=== PATIENT | female | born 1990 | race Two or more races ===

== ENCOUNTER 2020-08-11 07:40 | Emergency (ER) | payer OTHER, SELFPAY ==
--- NOTE | ~2020-08-11 | US_ITS ---
EXAMINATION: US OB <=14 wk fetus w TV EXAM DATE: 08/11/2020 09:08 INDICATION: vaginal bleeding and cramping Vaginal bleeding and cramping . 1st trimester. TECHNIQUE: Pelvic obstetrical transabdominal sonogram was performed by a technologist. There are mu ltiple grayscale and Doppler images available for interpretation. There are no earlier studies of th is gestation for comparison. FINDINGS: The uterus is retroverted, measures 6.2 x 5.4 x 4.2 cm, with significantly thickened hetero geneous endometrium at 23 mm. No intrauterine gestation sac identified. The ovaries are both identifi ed, morphologically normal and demonstrate low resistance Doppler flow. Early intrauterine or recent spontaneous are common causes of elevated beta hCG in absence of intrauterine confirmation. Ultrasound can sometimes identify, but never exclud e an ectopic in the setting of positive beta hCG. Follow up as warranted clinically with s erial beta hCG levels or ultrasound. IMPRESSION: Thickened endometrium, could be decidual reaction but no intrauterine or extrauterine pr egnancy identified. Follow up as warranted clinically with serial beta hCG levels or ultrasound. Reviewed, dictated and finalized at location A. IMPRESSION: Thickened endometrium, could be decidual reaction but no intrauter ine or extrauterine identified. Follow up as warranted clinically wit h serial beta hCG levels or ultrasound.
[2020-08-11 07:52] VITALS: BP 117/77; PULSE 97; RESP 18; TEMP 37.1; O2SAT 100
--- NOTE | 2020-08-11 07:58 | ED.PREGNANCY ---
HPI - General Chief complaint: SPECIALTY MOLDER Stated complaint: /bleeding Time Seen by Provider: 08/11/20 07:44 Source: patient and RN notes reviewed Mode of arrival: ambulatory Limitations: no limitations History of Present Illness HPI Narrative: This is a 30 year old female approximately 5 weeks GA who presents for evaluation of vaginal bleeding and lower abdominal cramping. She started having vaginal bleeding 4 days ago. It started as brown spotting and she developed worsening bleeding yesterday. She states she is passing clots when she urinates. She also reports lower abdominal cramping. She reports mild lightheadedness because she did not sleep well last night due to her cramping. LMP 07/02/20. Her OBGYN is located in [place] at [facility]. She spoke to her LOCK OPERATOR yesterday and she has an appointment on Thursday. Related Data Allergies Allergy/AdvReac Type Severity Reaction Status Date / Time No Known Allergies Allergy Verified 08/11/20 08:06 Review of Systems Review of Systems: All systems reviewed & are unremarkable except as noted in HPI and below PMFSH Past Medical History Medical History (Updated 08/11/20 @ 10:05 by Shoshana Churchill MD) Patient denies medical problems Surgical History Surgical History (Updated 08/11/20 @ 08:00 by Shoshana Churchill MD) No pertinent past surgical history Social History Social History (Updated 08/11/20 @ 08:01 by Shoshana Churchill MD) Smoking status: Never smoker Exam Const: General: no acute distress and alert Orientation/consciousness: patient oriented x3 Neck: Neck: no lymphadenopathy Resp: Effort & Inspection: normal respiratory effort and no retractions Auscultation: clear to auscultation bilaterally Cardio: Rate: regular rate Rhythm: regular rhythm Heart sounds: no murmurs GI: GI Palp: Yes Soft to palpation, Yes Tenderness to palpation present (GI) (suprapubic) and Yes Guarding due to palpation present (GI) : Speculum Exam - Vagina: vaginal bleeding (mild dark blood in vault, no clots, no tissues) Speculum Exam - Cervix: Cervical os closed Skin: General skin exam: normal color Rashes: no rashes Neuro: General: patient oriented x3, moves all extremities and CN's II-XI intact bilaterally Gait exam (Neuro): Normal gait present Psych: Mental Status: mental status grossly normal Affect: normal affect Course Reevaluation(s) Reevaluation #1: I discussed with patient that we attempted to call her LOCK OPERATOR but they did not have an exchange. This appears to be Family medicine clinic and not OB so I recommended that she follow up with our OB on Thursday Date: 08/11/20 Time: 10:00 Consultations Consultation #1: I spoke with Dr. Howell our cardiac surgeon OBGYN, He states to have patient follow up in their clinic on Thursday for them to do blood work and monitor this . Date: 08/11/20 Time: 09:56 Vital Signs Vital signs: Vital Signs Temperature 98.8 F 08/11/20 07:52 Pulse Rate 97 08/11/20 07:52 Respiratory Rate 18 08/11/20 07:52 Blood Pressure 117/77 08/11/20 07:52 Pulse Oximetry 100 08/11/20 07:52 Temperature 98.8 F 08/11/20 07:52 Pulse Rate 91 08/11/20 09:19 Respiratory Rate 18 08/11/20 07:52 Blood Pressure 105/75 08/11/20 09:19 Pulse Oximetry 100 08/11/20 07:52 MDM - OB/Uterine Contractions Lab Data Attestation: I reviewed the patient's lab results. Result diagrams: 08/11/20 08:02 Labs: Lab Results 08/11/20 08/11/20 08/11/20 Range/Units 08:02 08:02 08:03 WBC 10.5 H (4.5-10.0) K/mm3 RBC 4.68 (4.2-5.4) M/mm3 Hgb 14.3 (12.0-15.0) g/dL Hct 42.7 (37.0-47.0) % MCV 91.2 (80-100) fl MCH 30.6 (26-34) pg MCHC 33.5 (32-36) g/dl RDW 12.7 (11.5-14.5) % Plt Count 312 (150-375) k/mm3 MPV 9.0 (7.4-10.4) fl Immature Gran % (Auto) 0.2 (0-0.5) % Neut % (Auto) 69.5 (45.5-73.1) % Lymph % (Auto) 23.4 (18.3-44.2) % Braxton % (Aut
[2020-08-11 08:21] LABS: Basophils Percent Auto 0.4 % (0.2-1.2); Eosinophils Absolute Auto 0.1 K/mm3 (0-0.3); Hematocrit 42.7 % (37.0-47.0); Hemoglobin 14.3 g/dL (12.0-15.0); Immature Granulocyte Absolute 0.02 K/mm3 (0.00-0.031); Immature Granulocyte Percent A 0.2 % (0-0.5); Lymphocytes Absolute Auto 2.45 K/mm3 (0.9-3.2); Lymphocytes Percent Auto 23.4 % (18.3-44.2); Mean Corpuscular HGB Conc 33.5 g/dl (32-36); Mean Corpuscular Hemoglobin 30.6 pg (26-34); Mean Corpuscular Volume 91.2 fl (80-100); Monocytes Absolute Auto 0.6 K/mm3 (0.1-0.6); Monocytes Percent Auto 5.5 % (2.6-8.5); Neutrophils Absolute Auto 7.3 K/mm3 (1.3-6.7); Neutrophils Percent Auto 69.5 % (45.5-73.1); Platelet Count Result 312 k/mm3 (150-375); Red Blood Count 4.68 M/mm3 (4.2-5.4); Red Cell Distribution Width 12.7 % (11.5-14.5); White Blood Count 10.5 K/mm3 (4.5-10.0)
[2020-08-11 09:17] VITALS: BP 95/57; PULSE 76
[2020-08-11 09:18] VITALS: BP 99/64; PULSE 76
[2020-08-11 09:19] VITALS: BP 105/75; PULSE 91
== END 2020-08-11 10:26 | disposition home or self-care (01) ==
PROVIDERS: Emergency Provider General Practice
DX: O20.9 Hemorrhage in early pregnancy, unspecified (principal); Z3A.01 Less than 8 weeks gestation of pregnancy
CPT/HCPCS: 36415; 76801; 76817; 84702; 85025; 85461; 99284

== ENCOUNTER 2021-10-18 17:31 | Emergency (ER) | payer OTHER, SELFPAY ==
[2021-10-18 17:32] VITALS: BP 102/63; PULSE 93; RESP 16; TEMP 36.4; O2SAT 100
--- NOTE | 2021-10-18 18:03 | ED.URI ---
HPI - URI/Sore Throat General Chief Complaint: Upper Respiratory Infection Stated Complaint: cough, bodyaches Time Seen by Provider: 10/18/21 17:40 Source: patient Mode of arrival: ambulatory Limitations: no limitations History of Present Illness HPI Narrative: This is a 31 year old female that presents to the ER for cold symptoms. Present over the last couple of days. Reports low grade fevers, cough, sore throat and myalgias. Reports she is currently 24 weeks . Has had routine pre- care. Has no concerns. Is feeling baby move. She has been taking Tylenol and Claritin for her symptoms. Denies shortness of breath. Related Data Allergies Allergy/AdvReac Type Severity Reaction Status Date / Time No Known Allergies Allergy Verified 10/18/21 17:36 Review of Systems Review of Systems: CONSTITUTIONAL: Reports fever ENT: Reports congestion, sore throat CARDIOVASCULAR: Denies edema. RESPIRATORY: Reports cough. Denies dyspnea. All systems reviewed & are unremarkable except as noted in HPI and below PMFSH Past Medical History Medical History (Updated 10/18/21 @ 19:05 by Loretta Ballard PA-C) Patient denies medical problems Surgical History Surgical History (Updated 08/11/20 @ 08:00 by Shoshana Churchill MD) No pertinent past surgical history Social History Social History (Updated 08/11/20 @ 08:01 by Shoshana Churchill MD) Smoking status: Never smoker Exam Narrative: GENERAL: Well-appearing, well-nourished, and in no acute distress. HEAD: Normocephalic, atraumatic. EYES: EOMI. ENT: Nares clear, no rhinorrhea or epistaxis. Mucous membranes moist. Oropharynx without tonsillar hypertrophy exudate or other lesions. Bilateral TMs pearly jara non-bulging NECK: Supple. No adenopathy or masses. CHEST: Clear to auscultation. No respiratory distress. No wheezes rales or rhonchi HEART: Regular rate and rhythm. No murmur heard. Normal peripheral pulses. ABDOMEN: Gravid EXTREMITIES: Normal range of motion. No edema. SKIN: Warm, dry, no rash. NEURO: No focal deficits. Alert and oriented x3. PSYCH: Normal mood and affect Course Vital Signs Vital signs: Vital Signs Temperature 97.5 F L 10/18/21 17:32 Pulse Rate 93 10/18/21 17:32 Respiratory Rate 16 10/18/21 17:32 Blood Pressure 102/63 10/18/21 17:32 Pulse Oximetry 100 10/18/21 17:32 Oxygen Delivery Room Air 10/18/21 17:32 Temperature 97.5 F L 10/18/21 17:32 Pulse Rate 93 10/18/21 17:32 Respiratory Rate 16 10/18/21 17:32 Blood Pressure 102/63 10/18/21 17:32 Pulse Oximetry 100 10/18/21 17:32 Oxygen Delivery Room Air 10/18/21 17:32 MDM - URI/Sore Throat MDM Narrative Medical decision making narrative: Patient presents to the emergency department for cold symptoms present over the last couple of days. She is afebrile and nontoxic-appearing. Oxygen saturation has remained normal on room air. Lungs are clear on exam. Patient is influenza B positive. Patient is currently 24 weeks . Has no related concerns. Normal heart tones noted. Reports she is feeling baby move. Patient will be given prescription for Tamiflu. She was instructed on other supportive care of viral infection in . She was instructed to follow-up with her OB. She was given warnings to return to the ER Lab Data Attestation: I reviewed the patient's lab results. Labs: Lab Results 10/18/21 Range/Units 17:51 Influenza A (RT-PCR) Negative (Negative) Influenza B (RT-PCR) Positive A (Negative) SARS-CoV-2 RNA (RT-PCR) Negative Critical Care Time Critical Care Time Critical Care Time: No Discharge Plan Discharge Clinical Impression: Influenza B Patient Disposition: Home, Self-Care Condition: Stable Instructions: Influenza (ED) Additional Instructions: Return to the emergency department for worsening symptoms, or any other concerns Remain well-hydrated, get plenty o
[2021-10-18 18:35] LABS: Influenza A QL RT-PCR Negative (Negative); Influenza B QL RT-PCR Positive (Negative); SARS-CoV-2 RNA PCR Negative
[2021-10-18 19:18] VITALS: BP 108/68; PULSE 90; RESP 16; TEMP 36.5; O2SAT 100
== END 2021-10-18 19:19 | disposition home or self-care (01) ==
PROVIDERS: Physician Assistant; Emergency Provider General Practice
DX: O99.512 Diseases of the respiratory system complicating pregnancy, second trimester (principal); J10.1 Influenza due to other identified influenza virus with other respiratory manifestations; Z20.822 Contact with and (suspected) exposure to COVID-19; Z3A.24 24 weeks gestation of pregnancy
CPT/HCPCS: 87502; 99283; C9803; U0003; U0005

== ENCOUNTER 2024-11-15 15:54 | Outpatient (CLI) | payer OTHER, SELFPAY ==
[2024-11-15 16:24] LABS: Hematocrit 38.3 % (37.0-47.0); Hemoglobin 12.8 g/dL (12.0-15.0); Immature Granulocyte Percent A 1.2 % (0-0.5); Lymphocytes Absolute Auto 1.62 K/mm3 (0.9-3.2); Mean Corpuscular HGB Conc 33.4 g/dl (32-36); Mean Corpuscular Hemoglobin 31.4 pg (26-34); Mean Corpuscular Volume 94.1 fl (80-100); Nucleated Red Blood Cells Absolute Auto 0.000 K/mm3 (0.0-0.012); Nucleated Red Blood Cells Perc 0.0 % (0.0-0.2); Platelet Count Result 201 k/mm3 (150-375); Red Blood Count 4.07 M/mm3 (4.2-5.4); White Blood Count 9.3 K/mm3 (4.5-10.0)
--- OUTSIDE RECORDS SUMMARY | 2024-11-15 17:03 | XMS_ITS | Clinical Summary ---
Author Organization [facility] [place] [facility] Address [facility] [place] [address] Care Team Providers Care Poultry Killer Name Role Phone Bere Hull MD Primary Care Provider [phone] Allergies No known active allergies Medications vitamin (VINATE M) 27-1 MG Tab tablet Take 1 tablet by mouth daily. Active famotidine (PEPCID) 20 MG tabletIndication s:Belching,Gastr oesophageal reflux disease without esophagitis Take 1 tablet (20 mg total) by mouth 2 (two) times daily. 60 tablet 05/22/2022 Active Active Problems Problem Noted Date Diagnosed Date Endometritis 02/01/2022 Overview (02/01/2022): Tmax 102.8F s/p 24hrs of Unasyn Arrest of dilation, delivere d, current hospitalization ([facility]) 01/29/2022 Overview (01/29/2022): Arrest at 8 cm heart rate non-reassur ing affecting management of mother ([facility]) 01/29/2022 Overview (01/29/2022): NRFHT, recurrent late decels delivery delivered ([facility]) 01/29/2022 Overview (01/29/2022): LTCD, 2 layer closure, QBL 724cc atony Viral URI with cough 01/29/2022 Maternal varicella, non-immune ([facility]) 022 (HHS/HCC) 01/28/2022 Family History Medical History Relation Comments Hypertension Father Diabetes Mother Relation Status Comments Father Mother Social History Tobacco Use Types Packs/Day Years Used Date Smoking Tobacco: Never Passive Smoke Exposure: Never Smokeless Tobacco: Never Tobacco Cessation:Counseling Given: No Alcohol Use Standard Drinks/Week Comments Never 0 (1 standard drink = 0.6 oz pur e alcohol) PHQ-2 Answer Date Recorded Patient Health Questionnaire-2 Score 0 05/22/2022 Depression Answer Date Recor ded Last EPDS Total Score 3 01/31/2022 Last EPDS Self Harm Result Often 01/31 Comments No Sex and Gender Information Value Date Recorded Sex Assigned at Female 01/28/2022 12:43 PM CUSTOMER DEVELOPMENT REPRESENTATIVE Legal Sex Female 2:31 PM CDT Gender Identity Female 01/28/2022 12:43 PM CUSTOMER DEVELOPMENT REPRESENTATIVE Sexual Orientation Straight 01/28/2022 12 :43 PM CUSTOMER DEVELOPMENT REPRESENTATIVE Last Filed Vital Signs Vital Sign Reading Time Taken Comments Blood Pressure 91/70 05/22/2022 7:13 AM CDT Pulse 80 05/22/2022 7:13 AM CDT Temperature 36.8 C (98.2 F) 05/22/2022 7:13 AM CDT Respiratory Rate 16 05/22/2022 7:13 AM CDT Oxygen Saturation 100% 05/22/2022 7:13 AM CDT Inhaled Oxygen Concentration - - Weight 65.3 kg (144 lb) 05/22/2022 7:13 AM CDT Height 160 cm (5' 3) 05/22/2022 7:13 AM CDT Body Mass Index 25.51 05/22/2022 7:13 AM CDT Plan of Treatment Health Maintenance Due Date Last Done Comments Cervical Cancer Screening Pa p Smear (Age 30 to 64) Every 3 Years 1989 Annual Physical 1992 DTaP, Tdap and Td Vaccines ( 1 - Tdap) 2008 Hepatitis B Vaccines (1 of 3 - 19+ 3-dose series) 2008 HPV Vaccines (1 - 3-dose SCD M series) 2016 Cervical Cancer Screening Pa p with HPV Testing (Age 30 to 64) Every 5 Years 08/07/2019 Cervical Cancer Screening with HPV 08/07/2019 COVID-19 Vaccine (2023-2 5 season) 2024 Hepatitis C Completed 05/26/2021 Meningococcal B Vaccine Aged Out No l onger eligible based on patient's age to complete this topic Meningococcal Vaccine Aged Out No melva suki eligible based on patient's age to complete this topic Pneumococcal Vaccine: Pediat rics (0 to 5 Years) and At-Risk Patients (6 to 49 Years) Aged Out No longer eligi ble based on patient's age to complete this topic RSV Immunizations Under 20 Months Aged Out No longer eligible based on patient's age to complete this topic Procedures Procedure Name Priority Date/Time Associated Diagnosis Comments HEPATITIS C ANTIBODY Routine 05/26/2021 from Last 3 Months or Most Recently Relevant to Health Maintenance Results * HEPATITIS C ANTIBODY (05/26/2021) HEPATITIS C AB Negative us Default History Genericprovider LABORATORY Final Result from Last 3 Months or Most Recently Relevant to Health Maintenance Insurance [employer] Advance Directives * Full Code (Latest Code Status on File) Date Activated Date Inactivated Comments 01/28/2022 10:56 AM 02/01/2022 4:23 PM Care Teams Poultry Killer Relationship Specialty Start Date End Date Bere Hull MD [facility] [facility] [address] [place] [address] PCP - General INTERNAL MEDICINE 08/11/22
--- OUTSIDE RECORDS SUMMARY | 2024-11-15 17:03 | XMS_ITS | Encounter Summary ---
Author Organization [facility] [place] Address [address] [place] [address] Care Team Providers Care Trestle Builder Name Role Phone None, Provider Primary Care Provider Kathryn Beaulieu MD Primary Care Pr ovider Unavailable Bere Hull MD Primary Care Provider [phone] Encounter Details Date Type Department Care Team (Late st Contact Info) Description 09/25/2021 Community Orders [facility] EPICCARE LINK Charlene Sheikh DO Social History Tobacco Use Types Packs/Day Years Used Date Smoking Tobacco: Never Assessed Comments Unknown Sex and Gender Information Value Date Recorded Sex Assigned at Female 01/28/2022 12:43 PM CASKET ASSEMBLER Legal Sex Female 2:31 PM CDT Gender Identity Female 01/28/2022 12:43 PM CASKET ASSEMBLER Sexual Orientation Straight 01/28/2022 12 :43 PM CASKET ASSEMBLER COVID-19 Exposure Response Date Recorded In the last 10 days, have yo u been in contact with someone who was confirmed or suspected to have Coronavirus/COVID-19? No / Unsure 09/25/2021 4:14 PM CDT documented as of this encounter Plan of Treatment Not on file documented as of this encounter Results * CULTURE URINE (09/25/2021 4:21 PM CDT) SPEC DESCRIPTION URINE CLEAN CATCH 09/25/2021 4:21 PM CDT [facility] SPECIAL REQUESTS NO SPECIAL REQUEST 09/25/2021 4:21 PM CDT [facility] CULTURE RESULT NO GROWTH 2 DAYS 09/27/2021 9:07 AM CDT [facility] URINE SPECIMEN OBTAINED BY CLEAN CATCH PROCEDURE / Unknown 09/25/2021 4:21 PM CDT 09/25/2021 4:23 PM CDT Charlene Sheikh DO MICROBIOLOGY - GENERAL ORDERA BLES Final Result [facility] [address] [place] [address], [place] [phone] * URINALYSIS (09/25/2021 4:21 PM CDT) SPECIMEN TYPE URINE CLEAN CATCH 09/25/2021 4:21 PM CDT [facility] COLOR (U) COLORLESS 09/25/2021 4:50 PM CDT [facility] TRANSPARENCY CLEAR 09/25/2021 4:50 PM CDT [facility] SPECIFIC GRAVITY (U) 1.004 1.001 - 1.030 09/25/2021 4:50 PM CDT [facility] U PH 6.5 5.0 - 9.0 09/25/2021 4:50 PM CDT [facility] LEUKOCYTES (U) NEGATIVE NEGATIVE 09/25/2021 4:50 PM CDT [facility] NITRITES NEGATIVE NEGATIVE 09/25/2021 4:50 PM CDT [facility] PROTEIN (U) NEGATIVE <30 MG/DL 09/25/2021 4:50 PM CDT [facility] URINE GLUCOSE NORMAL NORMAL MG/DL 09/25/2021 4:50 PM CDT [facility] KETONES MG/DL (U) NEGATIVE NEGATIVE MG/DL 09/25/2021 4:50 PM CDT [facility] UROBILINOGEN NORMAL NORMAL MG/DL 09/25/2021 4:50 PM CDT [facility] BILIRUBIN (U) NEGATIVE NEGATIVE MG/DL 09/25/2021 4:50 PM CDT [facility] BLOOD (U) NEGATIVE NEGATIVE 09/25/2021 4:50 PM CDT [facility] URINE SPECIMEN OBTAINED BY CLEAN CATCH PROCEDURE / Unknown 09/25/2021 4:21 PM CDT us Charlene Sheikh DO URINE ORDERABLES Final Result [facility] [address] [place] [address], [place] [phone] documented in this encounter Visit Diagnoses Diagnosis Abdominal pain affecting (HHS/HCC)- Primary documented in this encounter Additional Health Concerns Infection Onset Date Last Indicated Resolved Time COVID-19 Rule Out 01/28/2022 01/28/2022 01/28/2022 2:51 PM CASKET ASSEMBLER documented as of this encounter Care Teams Trestle Builder Relationship Specialty Start Date End Date None, Provider, PCP - General UNKNOWN PHYSICIAN SPECIALTY 01/28/22 05/21/22 Kathryn Arambula MD PCP - General FAMILY PRACTICE 05/22/22 08/10/22 Bere Hull MD [address] [address] PCP - General INTERNAL MEDICINE 08/11/22 documented as of this encounter
[2024-11-15 17:35] LABS: Syphilis IgG/IgM Antibody Non-Reactive (Nonreactive)
== END 2024-11-15 15:55 | disposition home or self-care (01) ==
PROVIDERS: PCP Emergency Medicine; Visit Provider Obstetrics & Gynecology
DX: Z01.818 Encounter for other preprocedural examination (principal); I10 Essential (primary) hypertension
CPT/HCPCS: 36415; 85025; 86593; 86850; 86900; 86901

== ENCOUNTER 2024-11-16 05:26 | Inpatient (IN) | payer OTHER, SELFPAY ==
[2024-11-16] VITALS (54 sets, daily range): BP systolic 81–105; BP diastolic 48–67; PULSE 56–91; RESP 13–20; TEMP 36.4–36.7; O2SAT 97–100; BMI 27.7
[2024-11-16] MEDS: ACETAMINOPHEN 500 MG TABLET 1000 MG PO ×2 (06:20→12:54)
--- NOTE | 2024-11-16 06:28 | P.PNAN_ITS ---
Anes - Initial Pre Proc Eval Procedure: Operation Date: 11/16/24 07:30 Proposed Procedures p Repeat Section - Baron Mishra MD Date/Time: 11/16/24 06:28 Surgeon: Baron Mishra MD Pre Op Diagnosis: Repeat C/S Patient Data Age: 34 Gender: F Height: Weight: Last Vital Signs Pulse 83 11/16/24 06:16 BP 98/56 L 11/16/24 06:16 Allergies Allergy/AdvReac Type Severity Reaction Status Date / Time No Known Allergies Allergy Verified 11/16/24 06:19 Home Medications ?Medication ?Instructions ?Recorded ?Confirmed ?Type vit no.95-ferrous 1 tablet PO DAILY 11/15/24 11/15/24 History fumarate 28 mg-folic acid 800 mcg tablet () Patient hx anesthesia problems: none Family hx anesthesia problems: none Results Review: All pre-operative results and documents have been reviewed as part of the pre- operative evaluation. [facility] Past Medical History Medical History (Updated 10/19/21 @ 00:00 by Yesi Alford) Patient denies medical problems Surgical History Surgical History (Updated 08/11/20 @ 08:00 by Shoshana Churchill MD) No pertinent past surgical history Family History Family History (Updated 11/15/24 @ 14:45 by Martha Frank RN) Mother Diabetes mellitus Father Hypertension Social History Social History (Updated 08/11/20 @ 08:01 by Shoshana Churchill MD) Smoking status: Never smoker Substance use: never Spiritual care concerns: No Anes - Eval Final PreProcedure Day of Procedure 11/16/24 06:28 Patient weight: overweight Heart: regular rate and rhythm Lungs: clear to auscultation and normal air movement Airway: Mallampati scale class II Neurological: alert and oriented Last oral intake: >/= 8 hours ASA classification: II Emergent: no Anesthetic plan: proceed Anesthesia type and monitoring: regional spinal and standard monitoring Results Review: All pre-operative results and documents have been reviewed as part of the pre- operative evaluation. Informed Consent: The patient's anesthetic plan and its attendant risks and benefits were discussed with the patient/family/POA. Questions were solicited and answers provided to the satisfaction of the patient/family/POA.
[2024-11-16] MEDS: LACTATED RINGERS 1,000 ML 125 ML IV CONT (06:33)
--- NOTE | 2024-11-16 06:37 | LDADM ---
This patient, Shaina Plam, was admitted to Labor/Delivery/Recovery 119 on 11/16/24 at 05:26. Plans for labor, pain management and were discussed with patient. Patient/family oriented to hospital policies and general routines including ID bracelet, bed and alarms, visiting hours, pain management, procedures, bathroom and other care routines, personal items, smoking policy, room service/diet and guest tray routines, infant security routines, and visiting hours. Patient/Family are encouraged to report perceived risks to care and to ask questions if they do not understand what they are told or what they should do. See [facility] for further documentation.
[2024-11-16] MEDS: FAMOTIDINE 20 MG/2 ML VIAL IV PUSH (07:27)
[2024-11-16] MEDS: ONDANSETRON INJ 4 MG/2 ML VIAL IV PUSH ×2 (07:27→15:56)
--- NOTE | 2024-11-16 07:27 | P.HP_ITS ---
H&P: HPI History of Present Illness Date/Time: 11/16/24 07:27 Chief Complaint: Term Narrative: 34-year-old multiparous female at term who has a previous and desires female sterilization. We have agreed to perform repeat and bilateral salpingectomy. The patient understands the details of the procedure. The procedure has been explained in detail. She understands the risks. She understands that injuries may occur that result in hospitalization, more surgery, and severe illness. She understands risk of hemorrhage and infection. She denies any chest pain or shortness of breath. She denies any nausea, vomiting, fever, chills. Review of Systems Review of Systems: All systems reviewed & are unremarkable except as noted in HPI and below Constitutional: Constitutional: Denies chills, Denies fatigue, Denies fever(s) and Denies weakness Eyes: Eyes: Denies blurry vision, Denies change in vision, Denies loss of peripheral vision, Denies loss of vision, Denies other visual disturbances and Denies eye pain ENT: Denies vertigo, Denies dizziness, Denies hearing loss, Denies mouth pain, Denies nasal obstruction, Denies neck mass and Denies neck pain Cardiovascular: Cardiovascular: Denies chest pain, Denies diaphoresis, Denies syncope, Denies leg edema and Denies dyspnea Respiratory: Respiratory: Denies chest congestion, Denies cough, Denies hemoptysis, Denies dyspnea and Denies wheezing Gastrointestinal: Gastrointestinal: Denies abdominal pain, Denies constipation, Denies diarrhea, Denies nausea and Denies vomiting Genitourinary: Genitourinary: Denies hematuria, Denies change in libido, Denies nocturia, Denies genital lesions, Denies flank pain and Denies urinary urgency Musculoskeletal: Musculoskeletal: Denies abnormal gait, Denies back pain, Denies myalgias, Denies arthralgias, Denies joint swelling, Denies muscle weakness and Denies neck pain Integumentary/Breasts: Skin/Breast: Denies swelling, Denies breast pain, Denies breast mass, Denies dry skin, Denies nipple discharge, Denies unusual bruising and Denies jaundice Neurologic: Denies Neuro-related abnormal movements, Denies Abnormal speech present, Denies abnormal gait, Denies behavioral changes, Denies confusion, Denies vertigo, Denies dizziness, Denies syncope, Denies loss of vision, Denies memory loss, Denies convulsions and Denies weakness Psychiatric: Psychiatric: Denies abnormal sleep pattern, Denies behavioral changes, Denies change in libido, Denies confusion, Denies depression, Denies anhedonia and Denies memory loss Endocrine: Endocrine: Reports no additional endocrine complaints, Denies change in libido and Denies fatigue Hematologic/Lymphatic: Hematologic/Lymphatic: Reports no additional hematologic/lymphatic complaints Allergic/Immunologic: Allergic/Immunologic: Reports no additional aller gic/immunologic complaints and Denies wheezing PMFSH Past Medical History Medical History (Updated 11/16/24 @ 07:31 by Baron Mishra MD) Patient denies medical problems Surgical History Surgical History (Updated 11/16/24 @ 07:31 by Baron Mishra MD) No pertinent past surgical history Family History Family History (Updated 11/15/24 @ 14:45 by Martha Frank RN) Mother Diabetes mellitus Father Hypertension Social History Social History (Updated 08/11/20 @ 08:01 by Shoshana Churchill MD) Smoking status: Never smoker Substance use: never Lack of Transportation: No Lack of Food: Never True Current Housing: I Have Housing Concerned About Future Housing: No Difficulty Paying Gas/Electric Bills: No Difficulty Paying for Meds: No Currently Unemployed: No Education: Master's Degree or Higher Difficulty w/ Childcare or Family Care: No Spiritual care concerns: No Meds Home Medications and Allergies Home Medications ?Medication ?Instructions ?Recorded ?Confirmed ?Type vit no.95-ferrous 1 tablet PO DAILY 11/15/24 11/15/24 History fumarate 28 mg-folic acid 800 mcg tablet () Allergies Allergy/AdvReac Type Severity Reaction Status Date / Time No Known Allergies Allergy Verified 11/16/24 06:19 Vital Signs Vital Signs - 24 hr 11/16/24 06:01 11/16/24 06:16 11/16/24 06:31 Pulse Rate 91 83 83 Blood Pressure 87/61 L 98/56 L 96/62 L Oxygen Delivery 11/16/24 06:37 11/16/24 06:46 11/16/24 07:01 Pulse Rate 82 83 Blood Pressure 97/57 L 92/61 L Oxygen Delivery Room Air 11/16/24 07:16 Pulse Rate 86 Blood Pressure 101/61 Oxygen Delivery Exam Const: General: cooperative, healthy appearing, comfortable and no acute distress Orientation/consciousness: oriented to person, oriented to place and oriented to time HENMT: Head: normal to inspection Ears: external ears normal Face/Nose/Sinus: Normal external nose present and normal facial exam Face and sinus: normal facial exam Eyes: General: appearance normal, both eyes and all related structures Neck: Neck: normal visual inspection, trachea midline and supple Resp: Auscultation: clear to auscultation bilaterally, no crackles, no rales, no rhonchi and no wheezes Cardio: Rate: regular rate Rhythm: regular rhythm Heart sounds: no click, no murmurs and no rubs GI: GI Palp: No abdominal tenderness, No Soft to palpation, No Tenderness to palpation present (GI) and No Palpable mass present Auscultation: normal bowel sounds Skin: General skin exam: normal color and no rashes or lesions noted Neuro: General: oriented to person, oriented to place and oriented to time Extrem: General: normal to inspection, no joint enlargement, no clubbing, cyanosis or edema, no pedal edema and no calf tenderness Psych: Appearance: grossly normal Mental Status: mental status grossly normal Speech and movement: Normal speech and movement present Assessment and Plan Assessment and plan (1) Previous section: Code(s): Z98.891 - History of uterine scar from previous surgery Status: Acute (2) Unwanted fertility: Code(s): Z30.09 - Encounter for other general counseling and advice on contraception Status: Acute Plan 34-year-old multiparous female at term who has a previous and desires female sterilization. We have agreed to perform repeat and bilateral salpingectomy. She understands risks, benefits, and alternatives. She has completed the informed consent process is ready to proceed.
--- NOTE | 2024-11-16 07:32 | WPDHPUPDATE1 ---
History and Physical Update Update Date/Time: 11/16/24 07:32 History and Physical has been reviewed, including an updated exam of the patient. There are NO changes in the patient's condition. Risks, benefits, and alternatives have been discussed and questions answered. Patient agrees to proceed with procedure.
[2024-11-16] MEDS: ceFAZolin 2 GM in SODIUM CHLORIDE 0.9% IV 50 ML 100 ML IVPB (07:40)
--- NOTE | 2024-11-16 09:13 | P.PCNOB_ITS ---
OB - Delivery Note Procedure Delivery date: 11/16/24 Pre-op diagnosis: Previous Delivery and Other (Unwanted fertility) Post-op Diagnosis: Same Procedure Performed: Repeat and Other (Salpingectomy) Surgeon: Baron Mishra MD Anesthesia type: Spinal Description of Procedure/Findings: The patient was taken the operating room.? She was prepped and draped in dorsal supine position with a leftward tilt.? This was done after spinal anesthetic was applied.? A low-transverse skin incision was made and carried down till of the fascia with the knife.? The fascial incision was made with the knife.? The fascial incision was extended laterally with Tamayo scissors.? The fascia was tented upward superiorly and inferiorly the rectus muscles were dissected off bluntly.? The rectus muscles were the midline.? The preperitoneal fat and peritoneum were dissected open bluntly at the superior aspect of the sepa rated rectus muscles.? The peritoneal incision was extended superior and inferior with good position of bladder.? The uterine incision was made with a scalpel down to the level of the amniotic cavity.? The amniotic cavity was entered bluntly.? The was delivered.? The cord was clamped and cut and the infant was handed off to waiting pediatric staff.? Cord bloods were obtained.? The placenta was removed manually.? The uterus was exteriorized.? The uterus was cleared of all clots, debris and membranes.? The uterus was closed in 0 Vicryl running lock fashion.? imbricating layer of 0 Vicryl was placed also. Each fallopian tube was grasped and raised with a Beverly.? With from the underlying venous structures.? The mesosalpinx between the tube and the rest the adnexa was cauterized and transected with LigaSure cautery.? It was performed from the distal tube near the ovary in a stepwise fashion towards the cornua.? The tube at the cornua was cauterized transected with LigaSure cautery.? This was performed in a bilateral fashion. The uterus was returned to the abdomen.? The gutters were cleared of all clots and debris.? The fascia was closed with 0 Vicryl running fashion.? The subcutaneous tissue was irrigated pinpoint bleeders were cauterized.? The skin was closed with subcuticular absorbable gordon.? The skin incision line was covered with glue.? The patient tolerated the procedure well.? She has taken recovery room in stable condition.? Sponge lap and needle counts were correct x2.? Specimen: Yes Estimated Blood Loss: 400 Pathology: Yes Complications: No immediate complications Condition: Stable Disposition: Floor
[2024-11-16] MEDS: MORPHINE SULFATE INJ (*CRX) 10 MG/ML AMP 2.5 MG IV PUSH ×4 (09:58→11:06)
[2024-11-16] MEDS: OXYTOCIN 30 UNITS/NS 500 ML 30 UNITS/500 ML BAG 125 UNITS IV CONT (10:00)
[2024-11-16] MEDS: SIMETHICONE 80 MG TAB.CHEW PO ×2 (12:54→15:53)
[2024-11-16] MEDS: KETOROLAC 15 MG/ML VIAL (*BKC) IV PUSH (12:57)
[2024-11-16] MEDS: DOCUSATE SODIUM 100 MG CAPSULE PO (15:53)
[2024-11-16] MEDS: LIDOCAINE 5% PATCH 1 PATCH TRANSDERM (15:54)
[2024-11-16] MEDS: DEXTROSE 5%/0.45% SOD CHL 1,000 ML 125 ML IV CONT (16:20)
[2024-11-17 05:34] LABS: Hematocrit 32.3 % (37.0-47.0); Hemoglobin 11.0 g/dL (12.0-15.0); Immature Granulocyte Percent A 0.7 % (0-0.5); Lymphocytes Absolute Auto 2.25 K/mm3 (0.9-3.2); Mean Corpuscular HGB Conc 34.1 g/dl (32-36); Mean Corpuscular Hemoglobin 32.3 pg (26-34); Mean Corpuscular Volume 94.7 fl (80-100); Nucleated Red Blood Cells Absolute Auto 0.000 K/mm3 (0.0-0.012); Nucleated Red Blood Cells Perc 0.0 % (0.0-0.2); Platelet Count Result 170 k/mm3 (150-375); Red Blood Count 3.41 M/mm3 (4.2-5.4); White Blood Count 16.8 K/mm3 (4.5-10.0)
[2024-11-17] MEDS: SIMETHICONE 80 MG TAB.CHEW PO ×3 (07:26→17:18)
[2024-11-17] MEDS: IBUPROFEN 600 MG TABLET PO ×3 (07:26→19:50)
[2024-11-17] MEDS: DOCUSATE SODIUM 100 MG CAPSULE PO ×2 (07:26→17:19)
[2024-11-17] MEDS: ACETAMINOPHEN 500 MG TABLET 1000 MG PO ×3 (07:26→19:50)
--- NOTE | 2024-11-17 07:28 | WPDANLDPN2 ---
Anes-Prog Note L&D Date/Time: 11/17/24 07:28 Comfortable throughout: section Neuraxial method: spinal Epidural/Spinal procedure site: clean & non-tender Neuro status: Neuro function grossly intact. Cardiovascular status: normal Respiratory status: normal Airway patency: baseline Mental status: baseline Post-Op hydration status: normal Vital Signs: Last Vital Signs Temp 36.7 C 11/16/24 23:33 Pulse 67 11/16/24 23:33 Resp 18 11/16/24 23:33 BP 93/51 L 11/16/24 23:33 Pulse Ox 99 11/16/24 23:33 O2 Del Method Room Air 11/16/24 20:00 Pain score (VAS): 2 I/O: Intake & Output 11/16/24 11/16/24 11/17/24 15:59 23:59 07:59 Intake Total 980 Output Total 550 1150 1600 Balance 430 -1150 -1600 Post-procedural complaints: none Patient feedback: Patient satisfied with anesthetic care.
--- NOTE | 2024-11-17 07:28 | WPDANLDNPN2 ---
Anes-Prog Note L&D-Neuraxial Date/Time: 11/17/24 07:28 Neuraxial medications: intrathecal PF morphine Opiod-related complaints: none Patient feedback: Patient satisfied with post-operative pain management.
[2024-11-17 07:30] VITALS: BP 102/61; PULSE 81; RESP 18; TEMP 36.7; O2SAT 100
--- NOTE | 2024-11-17 07:45 | P.PNOB_ITS ---
OB - PN: Subj Subjective Date/time seen: 11/17/24 07:45 Interval history: post op day 1 section no complaints voiding without difficulty OB - PN: Obj Data Labs 11/17/24 05:18 Labs: Laboratory Results - last 24 hr 11/17/24 05:18 WBC 16.8 H RBC 3.41 L Hgb 11.0 L Hct 32.3 L MCV 94.7 MCH 32.3 MCHC 34.1 RDW 14.1 Plt Count 170 MPV 10.7 H Immature Gran % (Auto) 0.7 H Neut % (Auto) 79.2 H Lymph % (Auto) 13.4 L [place] % (Auto) 6.3 Eos % (Auto) 0.1 Baso % (Auto) 0.3 Lymph # (Auto) 2.25 [place] # (Auto) 1.1 H Eos # (Auto) 0.0 Baso # (Auto) 0.1 Abs Immat Gran (auto) 0.12 H Absolute Neuts (auto) 13.3 H Absolute Nucleated RBC 0.000 Nucleated RBC % 0.0 OB - PN A/P Plan day: 1 Plan: routine care Time Spent With Patient Time: Total time spent is greater than 50% in coordination of care (as documented) at patient's floor/unit and/or counseling patient: Review of Systems 2 Review of Systems: All systems reviewed & are unremarkable except as noted in HPI and below Exam 2 Const: General: cooperative, healthy appearing and comfortable Chest: Chest palpation & inspection: normal inspection of the chest Resp: Effort & Inspection: normal respiratory effort Cardio: Rate: regular rate GI: Other: incision CDI Back/Spine/Pelvis: Back: no CVA tenderness
--- NOTE | 2024-11-17 09:34 | S_PTH ---
PATIENT: Carmen McguireiACCT #:[id number] LOC: [facility] U#:[id number] AGE/SX: 34/F ROOM: 290 RE11/16/[address]: Emmanuel Sinha MD : 1990 BED: 00 DIS: 11/18/2024 SPEC #: [id number] RECD: 11/17/24 10:34 STATUS: RALEIGH RECristian #: [id number] JUAN: 11/17/24 09:[address]: Baron Mishra DEPT: [facility] Surgical RECD BY: Jannette Arias ENTERED: 11/17/24 10:34 SP TYPE: Surgical OTHR DR: Ole Hathaway, Tissues: A - Fallopian Tube Bilateral Procedures: Gross and Microscopic Level 2 Hematoxylin and Eosin Stain
--- NOTE | 2024-11-17 17:55 | PC.NURSE ---
1640. Mother verbalizes she is able to independently latch infant with appropriate positioning and alignment. She denies any nipple discomfort and is responsively . is currently meeting outcomes for weight, output, jaundice, blood sugar and feeding frequencies of 8-12 times in 24 hours. Mother declines any additional assistance or education at this time. Mother is encouraged to call for assistance if her doesn?t latch, pain with latching, questions or concerns. Mother voiced understanding of information shared along with the mom/baby guide for an additional resource. Reported to the Primary RN.
[2024-11-17] MEDS: oxyCODONE HCL (*CRX) 5 MG TAB IR PO (19:04)
[2024-11-17 19:39] VITALS: BP 91/73; PULSE 68; RESP 20; TEMP 36.6; O2SAT 100
[2024-11-18] MEDS: oxyCODONE HCL (*CRX) 5 MG TAB IR PO ×2 (03:13→07:50)
[2024-11-18] MEDS: ACETAMINOPHEN 500 MG TABLET 1000 MG PO ×3 (03:13→15:12)
[2024-11-18] MEDS: IBUPROFEN 600 MG TABLET PO ×3 (03:13→15:12)
[2024-11-18 07:05] VITALS: BP 97/68; PULSE 63; RESP 14; TEMP 36.7; O2SAT 100
--- NOTE | 2024-11-18 07:41 | P.PNOB_ITS ---
OB - PN: Subj Subjective Date/time seen: 11/18/24 07:41 Interval history: post op day 2 section no complaints voiding without difficulty, flatus present OB - PN: Obj Data Labs 11/17/24 05:18 OB - PN A/P Plan day: 2 Plan: routine care Time Spent With Patient Time: Total time spent is greater than 50% in coordination of care (as documented) at patient's floor/unit and/or counseling patient: Review of Systems 2 Review of Systems: All systems reviewed & are unremarkable except as noted in HPI and below Exam 2 Const: General: cooperative, healthy appearing and comfortable Chest: Chest palpation & inspection: normal inspection of the chest Cardio: Rate: regular rate GI: Other: incision CDI Back/Spine/Pelvis: Back: no CVA tenderness Skin: General skin exam: normal color
[2024-11-18] MEDS: SIMETHICONE 80 MG TAB.CHEW PO ×2 (07:50→15:12)
[2024-11-18] MEDS: DOCUSATE SODIUM 100 MG CAPSULE PO ×2 (07:50→15:15)
[2024-11-18] MEDS: MULTIVIT/MIN/PREN/FOL AC/IRON TABLET 1 TAB PO (07:51)
--- NOTE | 2024-11-18 09:50 | PC.NURSE ---
Patient called out for assistance. She is feeding baby every hour for 5-10 minutes. Baby is very sleepy at this time and we reviewed feeding cues and responsive . We discussed pumping and patient has a breast pump at home. She was concerned about the volume of breast milk baby is getting and she is reassured that with frequent feedings baby can get everything he needs. Educated on colostrum and transition of milk. diet discussed. Patient and her were both attentive. Patient is supported to take a break and try to feed baby again when she sees cues or within the next hour. She agrees to call out for assistance as needed. Primary RN updated.
--- NOTE | 2024-11-18 10:54 | PM.OBDSVD ---
DS: Admitting Diagnosis Discharge Date 11/18/24 Admitting Diagnosis repeat c section OB - DS: Summary OB Procedures : None OB Procedures Intrapartum: low cervical, transverse OB Procedures: : None Peripartum Data Procedures: Procedures Operation Date: 11/16/24 07:30 Actual Procedure Side Surgeon p Repeat Section Not Applicable Baron Mishra MD Time Spent with Patient Time attestation: Total time spent providing and/or coordinating discharge services: DS: Data Data Completed and Pending Completed studies during hospitalization: Pending at discharge 11/17/24 09:34 Surgical [PTH] Routine Discharge Plan Discharge Attending physician on discharge: Baron Mishra Discharging Clinician: Emmanuel Sinha Patient Disposition: Home Activity: may shower, as tolerated and pelvic rest Diet: as tolerated Discharge Instructions: Education: Mom and Baby Guide Given to: Mother Follow-Up: Call your delivering provider's office for an appointment to be seen in: 4 Weeks Mom and baby [facility] the follow-up appointment. Appointment Date/Time: November 21, 2024 at 8:00 am What to expect at your follow-up visit: Blood Pressure Check Physical Assessment Call [phone] if you are unable to keep your appointment time. BREAST CARE: * Wear a snug supportive bra. * For engorgement discomfort: Breast Feeding: * Apply warm moist washcloths * Express milk as needed to relieve engorgement * Wear loose clothing Bottle Feeding: * May apply ice packs * For sore nipples: * Identify correct latch-on * Apply warm moist washcloths before and after nursing * Air dry nipples after nursing * May apply Lansinoh cream to nipples ABDOMINAL INCISION: (if applicable) * Allow incision to air dry * Do NOT use lotions for powders on your incision * When showering, allow soap and water to run over the incision, but do not wash incision EPISIOTOMY/PERINEAL CARE: * Until bleeding stops, use your tamera bottle after urinating * Change your pad frequently throughout the day * You may take sitz baths several times a day (fill your bathtub with warm water and soak for 20 minutes.) Do NOT bathe in the water * No tub baths until seen by your physician - You may shower ACTIVITY: * Rest as much as possible. * Do not exercise or lift anything heavier than your baby (such as laundry or other children.) * Avoid stairs or driving as much as possible. * Do not put anything into the vagina. No douching, tampons, or sexual activity until seen by physician. NOTIFY PHYSICIAN IF YOU HAVE ANY QUESTIONS OR IF ANY OF THE FOLLOWING SYMPTOMS OCCUR: * If your episiotomy or incision becomes red, swollen, or more painful than what you have experienced in the hospital. * If your vaginal bleeding becomes foul smelling. * If your vaginal bleeding becomes more heavy than a period or if your bleeding changes from pink to bright red. However, you may pass an occasional walnut-sized clot once or twice for the first week . * If you experience a sharp, shooting pain in you calves. * If you discover a hard, reddened area on your breast or if you experience flu-like symptoms. DIET: * Eat regular, well-balanced meals. * Drink plenty of fluids daily. If , drink to thirst. Patient Instructions: Antibiotic Form Patient Language: Kiswahili Stand Alone Forms: General Discharge Information Follow-up/Referrals: Baron Mishra MD [Physician, SCIENTIFIC RESEARCH MANAGER] - 1 Week Discharge Medications: New ibuprofen 600 mg Tablet 600 mg PO Q6HR Qty: 30 0RF Continued PNV no.95-ferrous fumarate-FA [] 28 mg iron- 800 mcg tablet 1 tablet PO DAILY Date of admission: 11/16/24 05:26 Primary Care Provider: Mag,Ole Pierre Admitting Provider: Baron Mishra Attending physician on admission: Baron Mishra Condition: Stable
[2024-11-18 16:30] VITALS: BP 95/76; PULSE 65; RESP 15; TEMP 36.7; O2SAT 99
[2024-11-21 08:20] VITALS: BP 103/58; PULSE 75; RESP 18; TEMP 36.7; O2SAT 100
== END 2024-11-18 19:00 | disposition home or self-care (01) | DRG 785 ==
LOC: ANHLDR 09:00 → ANHOB2 11-18 10:53 → ANHLDR 11-21 09:23
PROVIDERS: Admitting Provider Obstetrics & Gynecology; PCP Emergency Medicine; Visit Provider Obstetrics & Gynecology
PROC: 10D00Z1 Extraction of Products of Conception, Low, Open Approach (ICD-10-PCS; CPT 59514; principal; 2024-11-16 07:30)
DX: O34.219 Maternal care for unspecified type scar from previous cesarean delivery (principal); Z30.2 Encounter for sterilization; O69.81X0 Labor and delivery complicated by cord around neck, without compression, not applicable or unspecified; Z3A.39 39 weeks gestation of pregnancy; Z37.0 Single live birth
CPT/HCPCS: 36415; 85025; 88302; J0690; A9270; J1100; J1200; J1885; J2270; J2274; J2371; J2405; J2590; J7120